=== PATIENT | female | born 1970 | race Caucasian/White ===

== ENCOUNTER 2025-10-12 06:58 | Day surgery (SDC) | payer OTHER ==
[2025-10-06 13:11] VITALS: BMI 24.2
[2025-10-12] MEDS ORDERED: PROPOFOL 40 ML ONE (09:08)
[2025-10-12] MEDS ORDERED: Glycopyrrolate 0.2 MG/ML 5 ML SYRINGE ONE (09:09)
[2025-10-12] MEDS ORDERED: Lidocaine 1% PF 5 ML VIAL ONE (09:09)
== END 2025-10-12 11:10 | disposition home or self-care (01) ==
LOC: CSHSDC 06:58
PROVIDERS: ATTEND Surgery
PROC: 0DJD8ZZ Inspection of Lower Intestinal Tract, Via Natural or Artificial Opening Endoscopic (ICD-10-PCS; principal; 2025-10-12)
DX: Z12.11 Encounter for screening for malignant neoplasm of colon (principal); K21.9 Gastro-esophageal reflux disease without esophagitis; I10 Essential (primary) hypertension; Z88.6 Allergy status to analgesic agent; Z79.899 Other long term (current) drug therapy
CPT/HCPCS: 93005; 93010; J2704